=== PATIENT | male | born 1955 | race African-American/Black ===

== ENCOUNTER 2023-10-17 01:03 | Emergency (ER) | payer MEDICARE, MEDICAID ==
[~2023-10-17] VITALS: Ht 182.9 cm; Wt 104.5 kg
[~2023-10-17 01:03] MED LIST: AMLO10TA80 PO
[2023-10-17 01:05] VITALS: BP 128/77; TEMP 98; O2SAT 99
[2023-10-17 01:07] VITALS: PULSE 100; RESP 18; O2SAT 100
[2023-10-17 01:35] LABS: BASOPHILS % 1.2 % (0.0-2.0); DIFFERENTIAL COMMENT 0; EOSINOPHILS % 3.3 % (0.0-5.0); HEMATOCRIT. 42.7 % (42.0-52.0); HEMOGLOBIN. 14.3 g/dL (14.0-18.0); LYMPHOCYTES % 31.6 % (20.0-50.0); MEAN CORPUSCULAR HEMOGLOBIN 26.2 pg (28.0-32.0); MEAN CORPUSCULAR HGB CONC 33.4 g/dL (31.0-37.0); MEAN CORPUSCULAR VOLUME 78.4 fL (80.0-94.0); MEAN PLATELET VOLUME 7.6 fl (7.4-10.4); MONOCYTES % 9.3 % (2.0-8.0); NEUTROPHILS % 54.6 % (40.0-76.0); PLATELET 247 x1000/uL (130-400); RED BLOOD CELL COUNT 5.44 mill/uL (4.7-6.1); RED CELL DISTRIBUTION WIDTH 15.5 % (11.6-14.6); WHITE BLOOD COUNT 7.3 x1000/uL (4.5-11.0)
[2023-10-17 01:42] LABS: CHLORIDE 107 mEq/L (98-107); SODIUM 136 mEq/L (136-145)
[2023-10-17 01:43] LABS: CARBON DIOXIDE 23 mEq/L (21-32)
[2023-10-17 01:44] LABS: CALCIUM 9.8 mg/dL (8.7-10.4)
[2023-10-17 01:48] LABS: GLUCOSE 121 mg/dL (70-105); UREA NITROGEN BLOOD 10 mg/dL (9-23)
[2023-10-17 01:52] LABS: CREATININE 2.1 mg/dL (0.6-1.3); TROPONIN I HIGH SENSITIVITY < 4 ng/L (3.0-53)
== END 2023-10-17 04:18 | disposition left against medical advice (07) ==
LOC: ER 01:03
DX: R07.89 Other chest pain (principal); Z53.21 Procedure and treatment not carried out due to patient leaving prior to being seen by health care provider
CPT/HCPCS: 36415; 71045; 80048; 84484; 85025; 85379; 93005